=== PATIENT | female | born 1975 | race Caucasian/White ===

== ENCOUNTER 2019-11-21 04:41 | Emergency (ER) | payer SELFPAY ==
[2019-11-21 04:55] VITALS: PULSE 57
[2019-11-21] MEDS ORDERED: Aspirin 81 MG Tab.Chew PO ONE (05:01)
[2019-11-21] MEDS ORDERED: Sodium Chloride 0.9% 10 ML Syringe FLUSH PRN (05:01)
--- NOTE | 2019-11-21 05:07 | EDM.PDOC ---
ED HPI GENERAL MEDICAL PROBLEM - General Chief Complaint: Chest Pain Stated Complaint: CHEST PAIN, PREVIOUS HEART ATTACK Time Seen by Provider: 11/21/19 04:55 Source of Information: Reports: Patient History Limitations: Reports: No Limitations - History of Present Illness INITIAL COMMENTS - FREE TEXT/NARRATIVE: The patient presents with chest pain. This started about 11pm last night. She says it is like someone sitting on her chest. She does have shortness of breath with it. She also is lightheaded. 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 She has diabetes, hypertension, hypercholesterolemia and she still smokes occasionally. She has no pain or swelling in her legs. She has no history of DVT or PE. Onset: Gradual Duration: Hour(s): (11pm last night) Location: Reports: Chest Quality: Reports: Pressure (like someone on her chest) Severity: Moderate Improves with: Reports: None Worsens with: Reports: None Associated Symptoms: Reports: Chest Pain, Shortness of Breath. Denies: Cough, Fever/Chills, Headaches, Nausea/Vomiting Left Chest Pain Score (Numeric/FACES): 7 - Related Data Allergies Allergy/AdvReac Type Severity Reaction Status Date / Time No Known Allergies Allergy Verified 11/21/19 04:55 ED ROS GENERAL - Review of Systems Review Of Systems: See Below Constitutional: Reports: No Symptoms HEENT: Reports: No Symptoms Respiratory: Reports: Shortness of Breath Cardiovascular: Reports: Chest Pain Endocrine: Reports: No Symptoms GI/Abdominal: Reports: No Symptoms : Reports: No Symptoms Musculoskeletal: Reports: No Symptoms ED EXAM, GENERAL - Physical Exam Exam: See Below Exam Limited By: No Limitations General Appearance: Alert, No Apparent Distress Ears: Normal External Exam Nose: Normal Inspection Head: Atraumatic, Normocephalic Neck: Normal Inspection Respiratory/Chest: No Respiratory Distress, Lungs Clear, Normal Breath Sounds Cardiovascular: Regular Rate, Rhythm, No Edema, No Murmur GI/Abdominal: Soft, Non-Tender, No Organomegaly, No Mass Extremities: Normal Inspection EKG INTERPRETATION EKG Date: 11/21/19 Time: 04:45 Rhythm: NSR Rate (Beats/Min): 58 Moore: Normal P-Wave: Present QRS: Normal ST-T: Normal QT: Normal Course - Vital Signs Last Recorded V/S: Last Vital Signs Temp 96.5 F L 11/21/19 04:49 Pulse 57 L 11/21/19 04:49 Resp 17 11/21/19 04:49 BP 128/77 11/21/19 05:37 Pulse Ox 100 11/21/19 04:49 - Orders/Labs/Meds Orders: Active Orders 24 hr Category Date Time Status Cardiac Monitoring [RC] . DIRECTED Care 11/21/19 05:01 Active EKG Documentation Completion [RC] ASDIRECTED Care 11/21/19 04:52 Active Oxygen Therapy [RC] PRN Care 11/21/19 05:01 Active Peripheral IV Care [RC] . DIRECTED Care 11/21/19 05:01 Active Chest 1V Frontal [CR] Stat Exams 11/21/19 05:02 Taken Heparin Sodium Med 11/21/19 06:22 Once 4,000 units IVPUSH .BOLUS ONE Heparin Sodium/D5W [Heparin 25,000 Units in D5W 500 ML] Med 11/21/19 06:30 Ordered 25,000 units in 500 ml IV TITRATE Nitroglycerin [Nitrostat] Med 11/21/19 05:01 Active 0.4 mg SL Q5M PRN Nitroglycerin/D5W [Nitroglycerin 25 MG/D5W 250 ML] Med 11/21/19 06:30 Ordered 25 mg in 250 ml IV TITRATE Sodium Chloride 0.9% [Saline Flush] Med 11/21/19 05:01 Active 10 ml FLUSH ASDIRECTED PRN Peripheral IV Insertion Adult [OM.PC] Stat Oth 11/21/19 05:01 Ordered EKG 12 Lead [EK] Stat Ther 11/21/19 04:52 Ordered Medication Orders Nitroglycerin (Nitrostat) 0.4 mg SL Q5M PRN PRN Reason: Chest Pain Stop: 11/22/19 05:01 Last Admin: 11/21/19 05:37 Dose: 0.4 mg Admin: 11/21/19 05:10 Dose: 0.4 mg Sodium Chloride (Saline Flush) 10 ml FLUSH ASDIRECTED PRN PRN Reason: Keep Vein Open Last Admin: 11/21/19 05:09 Dose: 10 ml Labs: Laboratory Tests 11/21/19 11/21/19 11/21/19 Range/Units 04:56 04:56 04:56 WBC 6.43 (3.98-10.04) K/mm3 RBC 4.95 (3.98-5.22) M/mm3 Hgb 14.8 D (11.2-15.7) gm/dl Hct 43.9 (34.1-44.9) % MCV 88.7 (79.4-94.8) fl MCH 29.9 (25.6-32.2) pg MCHC 33.7 (32.2-35.5) g/dl RDW Std Deviation 42.0 (36.4-46.3) fL Plt Count 259 (182-369) K/mm3 MPV 8.8 L (9.4-12.3) fl Neut % (Auto) 43.0 (34.0-71.1) % Lymph % (Auto) 51.5 (19.3-51.7) % Freestone % (Auto) 4.2 L (4.7-12.5) % Eos % (Auto) 0.8 (0.7-5.8) Baso % (Auto) 0.3 (0.1-1.2) % Neut # (Auto) 2.77 (1.56-6.13) K/mm3 Lymph # (Auto) 3.31 (1.18-3.74) K/mm3 Freestone # (Auto) 0.27 (0.24-0.36) K/mm3 Eos # (Auto) 0.05 (0.04-0.36) K/mm3 Baso # (Auto) 0.02 (0.01-0.08) K/mm3 D-Dimer, Quantitative 0.35 (0.19-0.50) mg/L Sodium 132 L (136-145) mEq/L Potassium 3.9 (3.5-5.1) mEq/L Chloride 96 L (98-107) mEq/L Carbon Dioxide 23 (21-32) mEq/L Anion Gap 16.9 H (5-15) BUN 21 H (7-18) mg/dL Creatinine 0.7 (0.55-1.02) mg/dL Est Cr Clr Drug Dosing 90.41 mL/min Estimated GFR (MDRD) > 60 (>60) mL/min BUN/Creatinine Ratio 30.0 H (14-18) Glucose 382 H (74-106) mg/dL Calcium 8.5 (8.5-10.1) mg/dL Total Bilirubin 0.4 (0.2-1.0) mg/dL AST TNP ALT TNP Alkaline Phosphatase 66 (46-116) U/L Troponin I < 0.017 (0.00-0.056) ng/mL Total Protein 7.5 (6.4-8.2) g/dl Albumin 3.6 (3.4-5.0) g/dl Globulin 3.9 gm/dL Albumin/Globulin Ratio 0.9 L (1-2) Meds: Medications Generic Name Dose Route Start Last Admin Trade Name Freq PRN Reason Stop Dose Admin Nitroglycerin 0.4 mg 11/21/19 05:01 11/21/19 05:37 Nitrostat SL 11/22/19 05:01 0.4 mg Q5M PRN Administration Chest Pain Sodium Chloride 10 ml 11/21/19 05:01 11/21/19 05:09 Saline Flush FLUSH 10 ml ASDIRECTED PRN Administration Keep Vein Open Discontinued Medications Generic Name Dose Route Start Last Admin Trade Name Freq PRN Reason Stop Dose Admin Aspirin 162 mg 11/21/19 05:01 11/21/19 05:09 Aspirin PO 11/21/19 05:02 162 mg ONETIME ONE Administration Hydromorphone HCl 1 mg 11/21/19 05:53 11/21/19 05:59 Dilaudid IVPUSH 11/21/19 05:54 1 mg ONETIME ONE Administration - Re-Assessments/Exams Free Text/Narrative Re-Assessment/Exam: 11/21/19 05:06 I ordered an IV saline lock, EKG, CXR, labs, aspirin and nitro. She did take 2 baby aspirin at home. I ordered 2 more. 11/21/19 05:56 Her EKG shows a NSR with no acute changes. Her CXR looks good. Her CBC was normal. Her D-dimer was negative. Her glucose was elevated at 382. Her troponin is negative. Her blood was lipemic. She stopped taking her meds about 2 years ago. She still has chest pain. I will give her some dilaudid. She has unstable angina and I feel she needs to go to [place] and be evaluated by cardiology. I called [facility] and talked with Dr Bryan and he accepted the patient. I have also ordered a nitro drip, heparin bolus and drip. 11/21/19 06:23 Departure - Departure Time of Disposition: 06:30 Disposition: DC/Tfer to Acute Hospital 02 Reason for Transfer *Q: Other Condition: Serious Clinical Impression: Unstable angina Referrals: Leigh Ann Curtis PA-C [Primary Care Provider] - Forms: ED Department Discharge Sepsis Event Note - Evaluation Sepsis Screening Result: No Definite Risk - Focused Exam Vital Signs: Vital Signs Temp Pulse Resp BP BP Pulse Ox 11/21/19 05:37 128/77 11/21/19 05:10 169/78 H 11/21/19 04:49 96.5 F L 57 L 17 174/79 H 100 Date Exam was Performed: 11/21/19 Time Exam was Performed: 06:23 - My Orders Last 24 Hours: My Active Orders 11/21/19 04:52 EKG Documentation Completion [RC] ASDIRECTED EKG 12 Lead [EK] Stat 11/21/19 05:01 Cardiac Monitoring [RC] . DIRECTED Oxygen Therapy [RC] PRN Peripheral IV Care [RC] . DIRECTED Nitroglycerin [Nitrostat] 0.4 mg SL Q5M PRN Sodium Chloride 0.9% [Saline Flush] 10 ml FLUSH ASDIRECTED PRN Peripheral IV Insertion Adult [OM.PC] Stat 11/21/19 05:02 Chest 1V Frontal [CR] Stat 11/21/19 06:22 Heparin Sodium 4,000 units IVPUSH .BOLUS ONE 11/21/19 06:30 Heparin Sodium/D5W [Heparin 25,000 Units in D5W 500 ML] 25,000 units in 500 ml IV TITRATE Nitroglycerin/D5W [Nitroglycerin 25 MG/D5W 250 ML] 25 mg in 250 ml IV TITRATE - Assessment/Plan Last 24 Hours: My Active Orders 11/21/19 04:52 EKG Documentation Completion [RC] ASDIRECTED EKG 12 Lead [EK] Stat 11/21/19 05:01 Cardiac Monitoring [RC] . DIRECTED Oxygen Therapy [RC] PRN Peripheral IV Care [RC] . DIRECTED Nitroglycerin [Nitrostat] 0.4 mg SL Q5M PRN Sodium Chloride 0.9% [Saline Flush] 10 ml FLUSH ASDIRECTED PRN Peripheral IV Insertion Adult [OM.PC] Stat 11/21/19 05:02 Chest 1V Frontal [CR] Stat 11/21/19 06:22 Heparin Sodium 4,000 units IVPUSH .BOLUS ONE 11/21/19 06:30 Heparin Sodium/D5W [Heparin 25,000 Units in D5W 500 ML] 25,000 units in 500 ml IV TITRATE Nitroglycerin/D5W [Nitroglycerin 25 MG/D5W 250 ML] 25 mg in 250 ml IV TITRATE
[2019-11-21] MEDS: Nitroglycerin 0.4 MG Tab.SL SL PRN ×2 (05:10→05:37)
[2019-11-21] MEDS ORDERED: HYDROmorphone 1 MG/ML Syringe IVPUSH ONE (05:53)
[2019-11-21 05:58] VITALS: BP 128/77
[2019-11-21] MEDS ORDERED: Heparin Sodium 5,000 Units/ML Vial IVPUSH ONE (06:22)
[2019-11-21] MEDS ORDERED: Nitroglycerin/D5W 25 MG/250 ML BOTTLE ONE (06:24)
[2019-11-21] MEDS ORDERED: Heparin Sodium/D5W 25,000 UNITS/500 ML BAG IV SCH (06:30)
[2019-11-21] MEDS ORDERED: Nitroglycerin/D5W 25 MG/250 ML BOTTLE IV SCH (06:30)
--- NOTE | 2019-11-21 09:20 | CR ---
Chest: Portable view of the chest was obtained. Comparison: Prior chest x-ray of 05/22/15. Heart size and mediastinum are within normal limits for portable technique. Lungs show no acute parenchymal change. Bony structures are grossly intact. Impression: 1. Nothing acute is appreciated on portable chest x-ray. Diagnostic code #1 This report was dictated in MDT
== END 2019-11-21 07:00 ==
LOC: JD.ED 04:41
DX: I20.0 Unstable angina (principal); E11.9 Type 2 diabetes mellitus without complications; I10 Essential (primary) hypertension; E78.00 Pure hypercholesterolemia, unspecified; F17.210 Nicotine dependence, cigarettes, uncomplicated; I25.2 Old myocardial infarction; Z95.5 Presence of coronary angioplasty implant and graft
CPT/HCPCS: 36415; 71045; 80053; 84484; 85025; 85379; 93005; 96365; 96368; 96375; 99285; A9270; J1170; J1644; J3490

== ENCOUNTER 2021-12-22 10:19 | Emergency (ER) | payer OTHER ==
[2021-12-22 10:48] VITALS: BP 125/76; PULSE 76
[2021-12-22] MEDS ORDERED: HYDROmorphone 0.5 MG/0.5 ML Syringe IM ONE (11:04)
== END 2021-12-22 11:35 | disposition home or self-care (01) ==
LOC: JD.ED 10:19
DX: K61.1 Rectal abscess (principal); E10.9 Type 1 diabetes mellitus without complications; I25.2 Old myocardial infarction; Z95.5 Presence of coronary angioplasty implant and graft
CPT/HCPCS: 96372; 99283; J1170

== ENCOUNTER 2023-05-18 03:26 | Emergency (ER) | payer OTHER ==
[2023-05-18] MEDS ORDERED: Sulfamethoxazole/Trimethoprim 800-160 MG Tab PO ONE (04:31)
[2023-05-18] MEDS ORDERED: Doxycycline Monohydrate 100 MG Cap PO ONE (04:31)
[2023-05-18 04:48] VITALS: BP 128/72; PULSE 81
== END 2023-05-18 04:47 | disposition home or self-care (01) ==
LOC: JD.ED 03:26
DX: K61.1 Rectal abscess (principal); E10.9 Type 1 diabetes mellitus without complications; I25.2 Old myocardial infarction
CPT/HCPCS: 99283; A9270